=== PATIENT | male | born 1955 | race Caucasian/White ===

== ENCOUNTER → 2025-01-03 09:25 | Outpatient (REF) | payer MEDICARE, SELFPAY | LOC: HWRAD 09:25 | PROVIDERS: ATTENDING PHYSICIAN Family Medicine | DX: M54.16 Radiculopathy, lumbar region (principal) | CPT/HCPCS: 72110 ==

== ENCOUNTER → 2025-10-29 09:52 | Outpatient (REF) | payer MEDICARE, SELFPAY | LOC: HWRCS 09:52 | PROVIDERS: ATTENDING PHYSICIAN Nurse Practitioner; FAMILY PHYSICIAN Family Medicine | DX: I48.0 Paroxysmal atrial fibrillation (principal); Z86.73 Personal history of transient ischemic attack (TIA), and cerebral infarction without residual deficits; Q21.12 Patent foramen ovale | CPT/HCPCS: 93306 ==